=== PATIENT | male | born 1950 | race Caucasian/White ===

== ENCOUNTER 2017-04-17 20:00 | Emergency (ER) | payer OTHER ==
[2017-04-17 20:03] VITALS: BP 129/63; PULSE 73; RESP 16; TEMP 97.4; O2SAT 100
[2017-04-17] MEDS ORDERED: HYDR-3533 PO (21:37)
[2017-04-17] MEDS ORDERED: MOBI7.5T PO (21:37)
[2017-04-17] MEDS ORDERED: ACETAMINOPHEN/HYDROcodone 325 MG/5 MG TAB PO ONE (21:45)
--- NOTE | 2017-04-17 21:50 | PD ---
HPI Chief Complaint: Musculoskeletal Complaint Time Seen by Provider: 21:35 Travel History International Travel<30 days: No Contact w/Intl Traveler<30days: No Traveled to known affect area: No History of Present Illness HPI 66-year-old black male presents to emergency department accompanied by his for evaluation of knee pain. According to the patient and his is actually had pain in both of his knees now for over a year. Symptoms have been worse over the past week or 2. They had moved from [place] to [place] almost one year ago. He started to see a new doctor at [facility] last month. He had his initial appointment and had a follow-up approximately 3-4 weeks ago. They' re in the process of getting all his medical records. She states that they did not address his complaint of knee pain at that time. They stated they wanted to address his chronic medical problems first. The states that while he was in [place] pain injected his left knee and had planned on giving him a series of injections but they have left to come to [place] before that was done. The patient here denies any trauma. He denies any recent illness other than his knee pain. He states that his left leg is always been larger than the right. He has had no sedentary activity. No fever or chills. No chest pain or shortness of breath. PFSH Past Medical History Narrative Medical Prostate cancer, Hypertension Chest Pain: Yes Diminished Hearing: No Tetanus Vaccination: Unknown Past Surgical History Narrative Surgical Prostatectomy Social History Alcohol Use: Yes Tobacco Use: No Substance Use: No Allergies-Medications (Allergen,Severity, Reaction): Coded Allergies: No Known Allergies (Verified Allergy, Unknown, 04/17/17) Reported Meds & Prescriptions Reported Meds & Active Scripts Active Mobic (Meloxicam) 7.5 Mg Tab 7.5 Mg PO DAILY Lortab (Hydrocodone-Acetaminophen) 5-325 Mg Tab 1 Tab PO Q6H PRN Review of Systems Except as stated in HPI: all other systems reviewed are Neg General / Constitutional: No: Fever Cardiovascular: No: Chest Pain or Discomfort, Palpitations Respiratory: No: Cough, Shortness of Breath Musculoskeletal: Positive: Arthralgias, Limited ROM, Edema, Pain, No: Myalgias , Weakness Skin: No Rash, No Itching Physical Exam Narrative GENERAL: This is a well-nourished, well-developed patient, in no apparent distress. SKIN: No rashes, ecchymoses or lesions. Warm and dry. HEAD: Atraumatic. Normocephalic. EYES: PERRL, EOMI, no discharge or injection. No scleral icterus. EARS: Clear NOSE: Nasal turbinates appear normal. THROAT: Mucosa pink and moist. Airway patent. NECK: Trachea midline. supple, moves head freely. LUNGS: Clear to auscultation. CV: Regular in rhythm. ABDOMEN: Soft nontender. EXT: No clubbing cyanosis the left leg is somewhat larger than right. Patient' s calf and thighs are supple. No cords. No tenderness. No Homans sign. Patient has good gross sensation with intact dorsalis pedis pulses bilaterally. Patient has inflammatory changes in both knees but the left is much greater than the right. Patient is up and ambulatory with an antalgic gait. There is no erythema or any significant warmth in the joints. Data Data Last Documented VS Vital Signs Date Time Temp Pulse Resp B/P (MAP) Pulse Ox O2 Delivery O2 Flow Rate FiO2 04/17/17 20:03 97.4 73 16 129/63 (85) 100 Room Air Orders Orders Acetamin-Hydrocod 325-5 Mg ([place] 5-325 (04/17/17 21:45) MDM Medical Decision Making Medical Screen Exam Complete: Yes Emergency Medical Condition: Yes Medical Record Reviewed: Yes Differential Diagnosis MDM: High Differential diagnoses: Fracture, sprain, strain, dislocation, contusion, neurovascular injury, arthritis, DVT Narrative Course Patient's given Lortab 5 a grams by mouth for pain. After my conversation with the patient and his I return to my desk. The nurse brought to my attention that the was unhappy with my care. She felt that I was dismissive. I went back into the room and spoke at length with the patient and his again. The patient's is refusing to explain what her complaint or problem might be. I made multiple attempts at satisfying the patient's . This is knee pain Diagnosis Primary Impression: Osteoarthritis of knees, bilateral Qualified Codes: M17.0 - Bilateral primary osteoarthritis of knee Patient Instructions: Narcotic given in the ED, General Instructions Additional Instructions: Rest. Limited activity. Elevation and ice for any acute swelling pain. Lortab for severe pain. Meloxicam daily for pain. Follow-up with your medical doctor in one week. Consider referral to an orthopedist. Return to the ER if symptoms worsen. Med/Other Pt SpecificInfo: Prescription(s) given Scripts Meloxicam (Mobic) 7.5 Mg Tab 7.5 MG PO DAILY for Pain, #30 TAB 0 Refills Prov: Inderjit Angeles MD 04/17/17 Hydrocodone-Acetaminophen (Lortab) 5-325 Mg Tab 1 TAB PO Q6H Y for PAIN GREATER THAN/EQUAL TO 5, #12 TAB 0 Refills Prov: Inderjit Angeles MD 04/17/17 Disposition: 01 DISCHARGE HOME Condition: Stable Munir Moore Apr 17, 2017 21:50
== END 2017-04-17 22:01 | disposition home or self-care (01) ==
LOC: NEPD 20:00
DX: M17.0 Bilateral primary osteoarthritis of knee (principal)
CPT/HCPCS: 99284